=== PATIENT | female | born 1955 | race Caucasian/White ===

== ENCOUNTER 2018-04-02 11:37 | Emergency (ER) | payer OTHER ==
[2018-04-02] MEDS ORDERED: Ondansetron 4 MG/2 ML SDV IVPUSH ONE (12:33)
[2018-04-02] MEDS ORDERED: HYDROmorphone 0.5 MG/0.5 ML SYRINGE IVPUSH ONE (12:34)
--- NOTE | 2018-04-02 12:37 | EDM.PDOC ---
ED HPI GENERAL MEDICAL PROBLEM - General Chief Complaint: Headache Stated Complaint: CRAMPS/CHILLS/BODY PAIN Time Seen by Provider: 04/02/18 12:05 Source of Information: Reports: Patient, Family (Daughter), Provider () History Limitations: Reports: No Limitations - History of Present Illness INITIAL COMMENTS - FREE TEXT/NARRATIVE: The patient states that she developed nausea, vomiting, lower abdominal pain, and a fever up to 102.7 on 03/17/2018. She was seen at the walk-in clinic on 03/19/2018, where, she states, her temperature was found to be 103. She underwent a CT scan of the abdomen and pelvis with IV contrast which demonstrated a normal appendix and diverticulosis without evidence of diverticulitis, however, she states that she was then treated with 7 days of Flagyl TID and Cipro BID, which she completed. She states that her symptoms had completely resolved by 03/24/2018. She states that she developed generalized weakness, chills, headache, and lower abdominal cramps today. She returned to the walk-in clinic where, she states, her blood pressure was found to be low. A CBC found her WBC count to be elevated at 17.0 with 7.1% bandemia. The remainder of her CBC was unremarkable. A CMP found her sodium to be slightly depressed at 134, with normal renal function. The remainder of her CMP was unremarkable. A urinalysis found a small amount of blood, but no suggestion of a UTI. She was initially sent home, but then called and instructed to go to the ED, for reasons unclear. Here in the ED, patient's BP is found to be low at 90/63, however, she is not tachycardic. She is afebrile. She is in no acute distress. She states that she has had small quantities of infrequent watery diarrhea. She denies recent dysuria, urinary frequency, or urgency. The patient does not have a PCP. Frontal Pain Score (Numeric/FACES): 7 - Related Data Allergies Allergy/AdvReac Type Severity Reaction Status Date / Time No Known Allergies Allergy Verified 04/02/18 12:32 Home Meds: Home Meds metroNIDAZOLE [Flagyl] 1 tab PO Q8H #30 tab 04/02/18 [Rx] Past Medical History Gastrointestinal History: Reports: Diverticulosis - Past Surgical History HEENT Surgical History: Reports: Tonsillectomy GI Surgical History: Reports: Other (See Below) (Rectal prolapse) Musculoskeletal Surgical History: Reports: Carpal Tunnel (right), ORIF (right ankle), Other (See Below) (bilateral thumb ligament repair) Social & Family History - Tobacco Use Smoking Status *Q: Current Every Day Smoker Years of Tobacco use: 44 Packs/Tins Daily: 0.5 Packs/Tins Daily Comment: Down from 1 ppd - Alcohol Use Alcohol Use History: Yes Alcohol Use Frequency: Socially - Recreational Drug Use Recreational Drug Use: No - Living Situation & Occupation Living situation: Reports: , Other (with friends) 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 ED EXAM, GI/ABD - Physical Exam Exam: See Below Exam Limited By: No Limitations General Appearance: Alert, WD/WN, No Apparent Distress Eyes: Bilateral: Normal Appearance, EOMI Ears: Normal External Exam, Hearing Grossly Normal Nose: Normal Inspection, No Blood Throat/Mouth: Normal Inspection, Normal Lips, Normal Voice, No Airway Compromise Head: Atraumatic, Normocephalic Neck: Normal Inspection, Full Range of Motion Respiratory/Chest: No Respiratory Distress, Lungs Clear, Normal Breath Sounds, No Accessory Muscle Use Cardiovascular: Normal Peripheral Pulses, Regular Rate, Rhythm, No Edema, No Gallop, No JVD, No Murmur, No Rub GI/Abdominal Exam: Normal Bowel Sounds (active), Soft, No Organomegaly, No Distention, No Abnormal Bruit, No Mass, Tender (Mild, generalized, non-focal) (Female) Exam: Deferred Rectal (Female) Exam: Deferred Back Exam: Normal Inspection, Full Range of Motion. No: CVA Tenderness (L), CVA Tenderness (R) Extremities: Normal Inspection, Normal Range of Motion, No Pedal Edema, Normal Capillary Refill Neurological: Alert, Oriented, Normal Cognition, No Motor/Sensory Deficits Psychiatric: Normal Affect Skin Exam: Warm, Dry, Intact, Normal Color, No Rash Course - Vital Signs Last Recorded V/S: Last Vital Signs Temp 36.7 C 04/02/18 12:32 Pulse 79 04/02/18 12:32 Resp 14 04/02/18 12:32 BP 90/63 04/02/18 12:32 Pulse Ox 100 04/02/18 12:32 - Orders/Labs/Meds Orders: Active Orders 24 hr Category Date Time Status Sodium Chloride 0.9% [Normal Saline] 1,000 ml Med 04/02/18 12:45 Active IV ASDIRECTED Sodium Chloride 0.9% [Saline Flush] Med 04/02/18 13:06 Active 10 ml FLUSH ONETIME PRN Medication Orders Sodium Chloride (Normal Saline) 1,000 mls @ 150 mls/hr IV ASDIRECTED ZAHRA Last Admin: 04/02/18 13:20 Dose: 150 mls/hr Sodium Chloride (Saline Flush) 10 ml FLUSH ONETIME PRN PRN Reason: IV FLUSH Last Admin: 04/02/18 13:48 Dose: 10 ml Admin: 04/02/18 13:21 Dose: 10 ml Labs: Laboratory Tests 04/02/18 Range/Units 13:15 C.difficile [id number] Presumptive negative C. difficile Tox (PCR) Positive H Meds: Medications Generic Name Dose Route Start Last Admin Trade Name Freq PRN Reason Stop Dose Admin Sodium Chloride 1,000 mls @ 150 mls/hr 04/02/18 12:45 04/02/18 13:20 Normal Saline IV 150 mls/hr ASDIRECTED ZAHRA Administration Sodium Chloride 10 ml 04/02/18 13:06 04/02/18 13:48 Saline Flush FLUSH 10 ml ONETIME PRN Administration IV FLUSH Discontinued Medications Generic Name Dose Route Start Last Admin Trade Name Freq PRN Reason Stop Dose Admin Diatrizoate Meglum/Diatrizoate Sod 90 ml 04/02/18 13:06 04/02/18 13:48 Gastrografin 37% PO 04/02/18 13:07 90 ml ONETIME ONE Administration Hydromorphone HCl 0.5 mg 04/02/18 12:34 04/02/18 13:23 Dilaudid IVPUSH 04/02/18 12:35 0.5 mg ONETIME ONE Administration Iopamidol 100 ml 04/02/18 13:06 04/02/18 13:48 Isovue-300 (61%) IVPUSH 04/02/18 13:07 80 ml ONETIME ONE Administration Metronidazole 500 mg 04/02/18 14:36 04/02/18 14:47 Flagyl PO 04/02/18 14:37 500 mg ONETIME ONE Administration Ondansetron HCl 4 mg 04/02/18 12:33 04/02/18 13:21 Zofran IVPUSH 04/02/18 12:34 4 mg ONETIME ONE Administration - Re-Assessments/Exams Free Text/Narrative Re-Assessment/Exam: 04/02/18 12:35 The patient presents with generalized weakness, chills, headache, and lower abdominal cramps, with a history of taking a seven-day course of both Flagyl and ciprofloxacin from 03/19/2018 through 03/25/2018. A CBC performed at the walk- in clinic this morning found her WBC count to be elevated at 17.0 with 7.1% bandemia. Her CMP and urinalysis are unremarkable. She reports infrequent small quantity liquid diarrhea. I have ordered a stool sample for C. difficile, as well as a CT scan of the abdomen and pelvis with oral and IV contrast. 04/02/18 14:35 Notified by microbiology that the patient's stool C. difficile toxin is positive. I have ordered Flagyl 500 mg. 04/02/18 14:36 CT of the abdomen and pelvis with oral and IV contrast is read by Dr. Green as: 1. Incidental findings. Nothing acute is appreciated on CT study of the abdomen and pelvis. 04/02/18 14:46 Test results discussed with the patient and her family. As above, the patient has been started on oral Flagyl, and I will prescribe a ten-day course. I would like the patient to stay adequately hydrated. I would like her to follow-up with Dr. Vinson, especially if her diarrhea does not cease. If it does, she does not need to be retested for C. difficile. Departure - Departure Time of Disposition: 14:48 Disposition: Home, Self-Care 01 Condition: Good Clinical Impression: Clostridium difficile diarrhea - Discharge Information Referrals: PCP,None [Primary Care Provider] - Ashley Vinson MD [Physician] - Forms: ED Department Discharge Additional Instructions: You were sent from the walk-in clinic for generalized weakness, chills, headache , lower abdominal cramps, and watery diarrhea. A CBC performed at the walk-in clinic found her WBC count to be elevated at 17.0 with 7.1% bandemia, consistent with a bacterial infection. Your chemistry panel was essentially normal, and your urinalysis showed a small amount of blood , but no suggestion of a UTI. Workup in the ER included a stool for C. difficile test, and a CT scan of your abdomen and pelvis. The CT scan of your abdomen and pelvis was unremarkable, however, the stool for C. difficile test returned positive. You have been started on the antibiotic Flagyl. A prescription for Flagyl has been sent to the [facility], located on [facility]. Take one tablet every 8 hours, starting at 11:00 tonight, as prescribed. Even if your diarrhea stops, you must finish the entire 10 day course. Stay adequately hydrated. Follow-up with Dr. Ashley Vinson as a primary care physician as needed, or in 10 days (04/12/2018) if your diarrhea has not stopped. If any other problems, please do not hesitate to return to the ER. - My Orders Last 24 Hours: My Active Orders 04/02/18 12:45 Sodium Chloride 0.9% [Normal Saline] 1,000 ml IV ASDIRECTED 04/02/18 13:06 Sodium Chloride 0.9% [Saline Flush] 10 ml FLUSH ONETIME PRN - Assessment/Plan Last 24 Hours: My Active Orders 04/02/18 12:45 Sodium Chloride 0.9% [Normal Saline] 1,000 ml IV ASDIRECTED 04/02/18 13:06 Sodium Chloride 0.9% [Saline Flush] 10 ml FLUSH ONETIME PRN
[2018-04-02 12:40] VITALS: BP 90/63
[2018-04-02] MEDS ORDERED: Sodium Chloride 0.9% 1,000 ML IV SCH (12:45)
[2018-04-02] MEDS ORDERED: Diatrizoate Meglumine/Diatrizoate Sodium 37% 120 ML Bottle PO ONE (13:06)
[2018-04-02] MEDS ORDERED: Iopamidol 612 MG/ML 100 ML Bottle IVPUSH ONE (13:06)
[2018-04-02] MEDS: Sodium Chloride 0.9% 10 ML Syringe FLUSH PRN ×2 (13:21→13:48)
--- NOTE | 2018-04-02 14:34 | CT ---
CT abdomen and pelvis Technique: Multiple axial sections were obtained from above the dome of the diaphragm inferiorly through the pubic symphysis. Intravenous and oral contrast was utilized. Delayed images were obtained through the bladder. Comparison: No prior CT abdomen or pelvis exam is available. Findings: Visualized lung bases show nothing acute. Liver shows no focal parenchymal abnormality. Gallbladder contains no calcified gallstones. Adrenal glands show no nodule. Kidneys show symmetric contrast enhancement without hydronephrosis or mass. Spleen appears within normal limits. Pancreas shows no discrete abnormality. Aorta shows no aneurysmal dilatation. No retroperitoneal adenopathy is seen. No mesenteric abnormalities are seen. Delayed images show contrast within the ureters as well as within the bladder. Appendix is felt to be visualized and is normal in size. No free fluid or inflammatory change is seen within the abdomen or pelvis. Bone window settings were reviewed which show scattered degenerative change within the spine with vacuum phenomena and mild spondylolisthesis at L4-L5. Impression: 1. Incidental findings. Nothing acute is appreciated on CT study of the abdomen and pelvis. Diagnostic code #2
[2018-04-02] MEDS ORDERED: metroNIDAZOLE 500 MG Tab PO ONE (14:36)
== END 2018-04-02 15:48 | disposition home or self-care (01) ==
LOC: JD.ED 11:37
DX: A04.72 Enterocolitis due to Clostridium difficile, not specified as recurrent (principal); F17.210 Nicotine dependence, cigarettes, uncomplicated
CPT/HCPCS: 74177; 87493; 96361; 96374; 96375; 99284; A9270; J1170; J2405; J7040; J7050; Q9963; Q9967

== ENCOUNTER 2019-01-29 00:39 | Emergency (ER) | payer SELFPAY ==
[2019-01-29 01:11] VITALS: BP 146/86
[2019-01-29] MEDS ORDERED: Diphtheria,Pertussis(Acell),Tetanus Vaccine 0.5 ML Syringe IM ONE (01:19)
--- NOTE | 2019-01-29 01:22 | EDM.PDOC ---
ED HPI GENERAL MEDICAL PROBLEM - General Chief Complaint: Laceration Stated Complaint: FINGER LACERATION Time Seen by Provider: 01/29/19 01:14 Source of Information: Reports: Patient History Limitations: Reports: No Limitations - History of Present Illness INITIAL COMMENTS - FREE TEXT/NARRATIVE: This is a 63-year-old female. She was walking outside and apparently tripped and fell she landed with her left hand outstretched and then hit her left shoulder. She has a laceration to her left thumb. She does not know when her last tetanus was. She complains of left shoulder pain and left thumb pain. She denies hitting her head is been no loss of consciousness and she denies any other injuries. Left Arm Pain Score (Numeric/FACES): 6 - Related Data Allergies Allergy/AdvReac Type Severity Reaction Status Date / Time No Known Allergies Allergy Verified 04/02/18 12:32 Home Meds: Home Meds . [No Known Home Meds] 01/29/19 [History] Past Medical History - Past Health History Medical/Surgical History: Denies Medical/Surgical History Gastrointestinal History: Reports: Diverticulosis - Past Surgical History HEENT Surgical History: Reports: Tonsillectomy GI Surgical History: Reports: Other (See Below) Musculoskeletal Surgical History: Reports: Carpal Tunnel, ORIF, Other (See Below ) Social & Family History - Tobacco Use Smoking Status *Q: Current Every Day Smoker Years of Tobacco use: 40 Packs/Tins Daily: 1 - Caffeine Use Caffeine Use: Reports: Coffee - Recreational Drug Use Recreational Drug Use: No - Living Situation & Occupation Living situation: Reports: , Other (with friends) 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[employer]) ED ROS GENERAL - Review of Systems Review Of Systems: See Below Constitutional: Denies: Fever, Chills HEENT: Reports: No Symptoms Respiratory: Reports: No Symptoms Cardiovascular: Reports: No Symptoms Endocrine: Reports: No Symptoms GI/Abdominal: Reports: No Symptoms : Reports: No Symptoms Musculoskeletal: Reports: Shoulder Pain, Hand Pain Skin: Reports: Other (As per history of present illness) Neurological: Reports: No Symptoms Psychiatric: Reports: No Symptoms Hematologic/Lymphatic: Reports: No Symptoms ED EXAM, SKIN/RASH Exam: See Below Exam Limited By: No Limitations General Appearance: Alert, WD/WN, No Apparent Distress Eye Exam: Bilateral Eye: Normal Inspection Ears: Normal External Exam Nose: Normal Inspection Throat/Mouth: Normal Lips, Normal Voice, No Airway Compromise Head: Atraumatic, Normocephalic Neck: Supple Respiratory/Chest: No Respiratory Distress Back Exam: Full Range of Motion Extremities: Other (Left hand she has a 3-4 cm laceration across the DIP joint on the palmar surface of the left thumb, she appears to have good range of motion and neurovascular is intact distally in that thumb, she has some tenderness at the base of the thumb but there is no obvious abnormality and no other digit abnormality, her left shoulder is tender in the supraspinatus and anterior deltoid area though she seems to be able to pick it up and actually reach overhead though it is tender to do so) Neurological: Alert, Oriented Psychiatric: Normal Affect, Normal Mood Skin: Warm, Dry ED SKIN PROCEDURES - Laceration/Wound Repair Left Hand Lac/Wound length In cm: 3 Appearance: Linear, Clean Distal NVT: Neuro & Vascular Intact Anesthetic Type: Local Local Anesthesia - Lidocaine (Xylocaine): 1% Plain Local Anesthetic Volume: 4cc Skin Prep: Providone-Iodine (Betadine) Exploration/Debridement/Repair: Wound Explored Closed with: Sutures Suture Size: other (5-0) # of Sutures: 5 Suture Type: Nylon Drain Placement: No Sterile Dressing Applied: Nurse Tetanus Status Addressed: Yes Complications: No Course - Vital Signs Last Recorded V/S: Last Vital Signs Temp 97.9 F 01/29/19 01:08 Pulse 66 01/29/19 01:08 Resp 16 01/29/19 01:08 BP 146/86 H 01/29/19 01:08 Pulse Ox 99 01/29/19 01:08 - Orders/Labs/Meds Orders: Active Orders 24 hr Category Date Time Status Vaccines to be Administered [RC] PER UNIT ROUTINE Care 01/29/19 01:19 Active Hand Comp Min 3V Lt [CR] Stat Exams 01/29/19 01:19 Taken Shoulder Comp Lt [CR] Stat Exams 01/29/19 01:18 Taken Meds: Medications Discontinued Medications Generic Name Dose Route Start Last Admin Trade Name Freq PRN Reason Stop Dose Admin Diphtheria/Tetanus/Acell Pertussis 0.5 ml 01/29/19 01:19 01/29/19 02:42 Adacel IM 01/29/19 01:20 0.5 ml .ONCE ONE Administration Lidocaine HCl 20 ml 01/29/19 02:25 01/29/19 02:44 Xylocaine 1% INJECT 01/29/19 02:26 Not Given ONETIME ONE Lidocaine HCl Confirm 01/29/19 02:38 01/29/19 02:44 Xylocaine-Mpf 1% Administered 01/29/19 02:39 30 ml Dose Administration 30 ml .ROUTE .STK-MED ONE - Radiology Interpretation Free Text/Narrative:: The shoulder x-rays do not show any acute fractures. Left thumb x-ray shows severe degenerative changes but I do not see any acute fractures - Re-Assessments/Exams Free Text/Narrative Re-Assessment/Exam: 01/29/19 02:25 I spoke to the patient regarding her x-ray results that there is no acute fractures though she does have severe degenerative changes in her left thumb. 01/29/19 03:02 I sutured the left thumb with no difficulty with good approximation of the skin edges and the patient tolerated it well. Departure - Departure Time of Disposition: 03:02 Disposition: Home, Self-Care 01 Condition: Good Clinical Impression: Laceration of left thumb Qualifiers: Encounter type: initial encounter Damage to nail status: without damage Foreign body presence: without foreign body Qualified Code(s): S61.012A - Laceration without foreign body of left thumb without damage to nail, initial encounter Sprain of left thumb Qualifiers: Encounter type: initial encounter Sprain of finger site: unspecified site Qualified Code(s): S63.602A - Unspecified sprain of left thumb, initial encounter Sprain of left shoulder Qualifiers: Encounter type: initial encounter Shoulder sprain type: unspecified sprain Qualified Code(s): S43.402A - Unspecified sprain of left shoulder joint, initial encounter - Discharge Information *PRESCRIPTION DRUG MONITORING PROGRAM REVIEWED*: Not Applicable *COPY OF PRESCRIPTION DRUG MONITORING REPORT IN PATIENT JORGE: Not Applicable Instructions: Laceration Care, Adult, [id number] Referrals: Los Armando MD [Primary Care Provider] - Forms: ED Department Discharge Additional Instructions: Keep the wound clean and dry and do not submerge it in water, watch for infection which would include increased redness swelling or drainage, have the sutures removed in 7-10 days by your family physician, take Tylenol or ibuprofen as needed for the soreness, when you see your family physician and have them recheck your left shoulder to make sure it is getting better, return to the ER if needed - My Orders Last 24 Hours: My Active Orders 01/29/19 01:18 Shoulder Comp Lt [CR] Stat 01/29/19 01:19 Vaccines to be Administered [RC] PER UNIT ROUTINE Hand Comp Min 3V Lt [CR] Stat - Assessment/Plan Last 24 Hours: My Active Orders 01/29/19 01:18 Shoulder Comp Lt [CR] Stat 01/29/19 01:19 Vaccines to be Administered [RC] PER UNIT ROUTINE Hand Comp Min 3V Lt [CR] Stat
[2019-01-29] MEDS ORDERED: Lidocaine 1% 20 ML MDV INJECT ONE (02:25)
[2019-01-29] MEDS ORDERED: Lidocaine 1% 30 ML SDV ONE (02:38)
--- NOTE | 2019-01-29 20:17 | CR ---
Left shoulder: Three views of the left shoulder were obtained. Comparison: No prior shoulder study. Lucencies are seen within the rim of the glenoid either due to prior surgery or slight degenerative cystic change. Acromioclavicular and glenohumeral joint are otherwise unremarkable. No acute fracture, dislocation or other bony abnormality is seen. Impression: 1. Lucencies within the glenoid as described above. 2. Left shoulder study is otherwise unremarkable. Diagnostic code #2
--- NOTE | 2019-01-29 20:17 | CR ---
Left thumb: Three views of left thumb were obtained. Comparison: No previous study. Severe degenerative change noted at the CMC joint of the thumb. There is partial collapse being seen of the trapezium. Joint space narrowing and osteophytes are noted within the MCP and IP joints. Bony structures are slightly osteopenic. No acute abnormality is seen. Impression: 1. Degenerative change as noted above. Chronic partial collapse of the trapezium. 2. Nothing acute is seen. Diagnostic code #2
== END 2019-01-29 03:22 | disposition home or self-care (01) ==
LOC: JD.ED 00:39
DX: S43.402A Unspecified sprain of left shoulder joint, initial encounter (principal); S63.602A Unspecified sprain of left thumb, initial encounter; Z23 Encounter for immunization; F17.210 Nicotine dependence, cigarettes, uncomplicated; W01.10XA Fall on same level from slipping, tripping and stumbling with subsequent striking against unspecified object, initial encounter
CPT/HCPCS: 12002; 73030; 73130; 90471; 90700; 99283; J2001; 99282

== ENCOUNTER 2019-09-25 00:28 | Emergency (ER) | payer MEDICARE, OTHER ==
--- NOTE | 2019-09-25 00:52 | EDM.PDOC ---
ED HPI GENERAL MEDICAL PROBLEM - General Chief Complaint: Respiratory Problem Stated Complaint: SOB CHEST HEAVY Time Seen by Provider: 09/25/19 00:51 - History of Present Illness INITIAL COMMENTS - FREE TEXT/NARRATIVE: 64-year-old female returns the emergency room with chest tightness breaking out in a rash and some possible throat tightness. This started around 10:30 this evening. The patient was out having a few drinks with some friends. She also was exposed to oven millstone cleaner earlier in the day. But this is not cause problems for her in the past. Patient denies any history of coronary artery disease is not aware of any chest pain in the past or heart attack. She has some chest tightness but no shortness of breath she is able to swallow and clear secretions okay. - Related Data Allergies Allergy/AdvReac Type Severity Reaction Status Date / Time No Known Allergies Allergy Verified 09/25/19 00:35 Home Meds: Home Meds Potassium Chloride [Klor-Con M20] 20 meq PO Q12H #8 tab.er 09/25/19 [Rx] predniSONE [Prednisone] 40 mg PO Q24H #4 tablet 09/25/19 [Rx] Past Medical History - Past Health History Medical/Surgical History: Denies Medical/Surgical History Cardiovascular History: Reports: Hypertension Gastrointestinal History: Reports: Diverticulosis [employer] History: Reports: - Past Surgical History HEENT Surgical History: Reports: Tonsillectomy Musculoskeletal Surgical History: Reports: Carpal Tunnel, ORIF Social & Family History - Tobacco Use Smoking Status *Q: Current Every Day Smoker Years of Tobacco use: 20 Packs/Tins Daily: 0.5 - Caffeine Use Caffeine Use: Reports: Coffee - Alcohol Use Days Per Week of Alcohol Use: 4 Number of Drinks Per Day: 3 Total Drinks Per Week: 12 - Recreational Drug Use Recreational Drug Use: No - Living Situation & Occupation Living situation: Reports: , Other (with friends) 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 Denies: No Symptoms Respiratory: Reports: No Symptoms Cardiovascular: Reports: No Symptoms Endocrine: Reports: No Symptoms GI/Abdominal: Reports: No Symptoms : Reports: No Symptoms Musculoskeletal: Reports: No Symptoms Skin: Reports: Other (Red splotchy rash over the face and start to develop on the trunk) Neurological: Reports: No Symptoms Psychiatric: Reports: No Symptoms Hematologic/Lymphatic: Reports: No Symptoms Immunologic: Reports: No Symptoms ED EXAM, GENERAL - Physical Exam Exam: See Below Exam Limited By: No Limitations General Appearance: Alert, No Apparent Distress, Other (She has a splotchy rash developing over her face and to a lesser degree her neck even a lesser degree over her lower trunk at this time a little bit on her proximal extremities) Eye Exam: Bilateral Eye: Normal Inspection, PERRL Ears: Normal External Exam, Normal Canal, Hearing Grossly Normal, Normal TMs Nose: Normal Inspection, Normal Mucosa, No Blood Throat/Mouth: Normal Inspection, Normal Lips, Normal Teeth, Normal Gums, Normal Oropharynx, Normal Voice, No Airway Compromise Head: Atraumatic, Normocephalic Neck: Normal Inspection, Supple, Non-Tender, Full Range of Motion. No: Lymphadenopathy (L), Lymphadenopathy (R) Respiratory/Chest: Lungs Clear, Normal Breath Sounds, No Accessory Muscle Use Cardiovascular: Regular Rate, Rhythm, No Edema, No Murmur GI/Abdominal: Normal Bowel Sounds, Soft, Non-Tender Back Exam: Normal Inspection. No: CVA Tenderness (L), CVA Tenderness (R) Extremities: Normal Inspection, No Pedal Edema Skin Exam: Other (He has a variable rash almost hives like over her face pretty confluent over the face to a lesser degree over her lower trunk abdomen and low back and even to a lesser degree on her proximal thighs and upper arms) Course - Vital Signs Last Recorded V/S: Last Vital Signs Temp 36.6 C 09/25/19 00:35 Pulse 87 09/25/19 00:35 Resp 27 H 09/25/19 00:35 BP 138/75 09/25/19 00:35 Pulse Ox 95 09/25/19 00:35 - Orders/Labs/Meds Orders: Active Orders 24 hr Category Date Time Status EKG Documentation Completion [RC] STAT Care 09/25/19 01:05 Active Chest 1V Frontal [CR] Stat Exams 09/25/19 01:05 Taken Lactated Ringers [Ringers, Lactated] 1,000 ml Med 09/25/19 02:00 Active IV ASDIRECTED Medication Orders Lactated Ringer's (Ringers, Lactated) 1,000 mls @ 150 mls/hr IV ASDIRECTED ZAHRA Last Admin: 09/25/19 02:04 Dose: 150 mls/hr Labs: Laboratory Tests 09/25/19 09/25/19 09/25/19 Range/Units 00:35 00:35 00:35 WBC 8.89 (3.98-10.04) K/mm3 RBC 4.25 (3.98-5.22) M/mm3 Hgb 13.4 (11.2-15.7) gm/dl Hct 38.8 (34.1-44.9) % MCV 91.3 (79.4-94.8) fl MCH 31.5 (25.6-32.2) pg MCHC 34.5 (32.2-35.5) g/dl RDW Std Deviation 41.7 (36.4-46.3) fL Plt Count 320 (182-369) K/mm3 MPV 9.4 (9.4-12.3) fl Neutrophils % (Manual) 28 L (40-60) % Band Neutrophils % 2 (0-10) % Lymphocytes % (Manual) 49 H (20-40) % Atypical Lymphs % 5 % Monocytes % (Manual) 13 H (2-10) % Eosinophils % (Manual) 0 L (0.7-5.8) % Basophils % (Manual) 3 H (0.1-1.2) Platelet Estimate Adequate Plt Morphology Comment Normal RBC Morph Comment Normal PT 10.0 (9.7-12.0) SECONDS INR < 0.93 APTT 27 (22-31) SECONDS Sodium 131 L (136-145) mEq/L Potassium 2.8 L (3.5-5.1) mEq/L Chloride 96 L (98-107) mEq/L Carbon Dioxide 21 (21-32) mEq/L Anion Gap 16.8 H (5-15) BUN 8 (7-18) mg/dL Creatinine 0.7 (0.55-1.02) mg/dL Est Cr Clr Drug Dosing 56.78 mL/min Estimated GFR (MDRD) > 60 (>60) mL/min BUN/Creatinine Ratio 11.4 L (14-18) Glucose 117 H (80-115) mg/dL Calcium 8.9 (8.5-10.1) mg/dL Total Bilirubin 0.2 (0.2-1.0) mg/dL AST 17 (15-37) U/L ALT 24 (14-59) U/L Alkaline Phosphatase 68 (46-116) U/L Troponin I < 0.017 (0.00-0.056) ng/mL Total Protein 7.0 (6.4-8.2) g/dl Albumin 3.7 (3.4-5.0) g/dl Globulin 3.3 gm/dL Albumin/Globulin Ratio 1.1 (1-2) Ethyl Alcohol (0.00) gm% 09/25/19 Range/Units 00:35 WBC (3.98-10.04) K/mm3 RBC (3.98-5.22) M/mm3 Hgb (11.2-15.7) gm/dl Hct (34.1-44.9) % MCV (79.4-94.8) fl MCH (25.6-32.2) pg MCHC (32.2-35.5) g/dl RDW Std Deviation (36.4-46.3) fL Plt Count (182-369) K/mm3 MPV (9.4-12.3) fl Neutrophils % (Manual) (40-60) % Band Neutrophils % (0-10) % Lymphocytes % (Manual) (20-40) % Atypical Lymphs % % Monocytes % (Manual) (2-10) % Eosinophils % (Manual) (0.7-5.8) % Basophils % (Manual) (0.1-1.2) Platelet Estimate Plt Morphology Comment RBC Morph Comment PT (9.7-12.0) SECONDS INR APTT (22-31) SECONDS Sodium (136-145) mEq/L Potassium (3.5-5.1) mEq/L Chloride (98-107) mEq/L Carbon Dioxide (21-32) mEq/L Anion Gap (5-15) BUN (7-18) mg/dL Creatinine (0.55-1.02) mg/dL Est Cr Clr Drug Dosing mL/min Estimated GFR (MDRD) (>60) mL/min BUN/Creatinine Ratio (14-18) Glucose (80-115) mg/dL Calcium (8.5-10.1) mg/dL Total Bilirubin (0.2-1.0) mg/dL AST (15-37) U/L ALT (14-59) U/L Alkaline Phosphatase (46-116) U/L Troponin I (0.00-0.056) ng/mL Total Protein (6.4-8.2) g/dl Albumin (3.4-5.0) g/dl Globulin gm/dL Albumin/Globulin Ratio (1-2) Ethyl Alcohol 0.19 (0.00) gm% Meds: Medications Generic Name Dose Route Start Last Admin Trade Name Freq PRN Reason Stop Dose Admin Lactated Ringer's 1,000 mls @ 150 mls/hr 09/25/19 02:00 09/25/19 02:04 Ringers, Lactated IV 150 mls/hr ASDIRECTED ZAHRA Administration Discontinued Medications Generic Name Dose Route Start Last Admin Trade Name Freq PRN Reason Stop Dose Admin Acetaminophen 650 mg 09/25/19 01:49 09/25/19 02:05 Tylenol PO 09/25/19 01:50 650 mg NOW ONE Administration Diphenhydramine HCl 50 mg 09/25/19 01:04 09/25/19 01:20 Benadryl IVPUSH 09/25/19 01:05 50 mg ONETIME ONE Administration Famotidine 40 mg 09/25/19 01:04 09/25/19 01:24 Pepcid IVPUSH 09/25/19 01:05 40 mg ONETIME ONE Administration Potassium Chloride 10 meq/ 100 mls @ 100 mls/hr 09/25/19 02:00 09/25/19 03:12 Premix IV 09/25/19 03:59 100 mls/hr Q1H ZAHRA Administration Methylprednisolone Sodium Succinate 125 mg 09/25/19 01:04 09/25/19 01:27 Solu-Medrol IVPUSH 09/25/19 01:05 125 mg ONETIME ONE Administration - Re-Assessments/Exams Free Text/Narrative Re-Assessment/Exam: 09/25/19 04:59 Labs obtained which are concerning for hypokalemia at 2.8 sodium is down a little bit 131 chloride 96. CBC shows a white count of 8928% segs 2% bands 49% lymphs 13% monocytes 0 eosinophils and 3% basophils. Troponins negative chest x- ray was done which shows no acute cardiopulmonary changes old rib fractures on the right side are visualized these were present in 2016. Patient states she injured her chest many years ago. Departure - Departure Time of Disposition: 05:01 Disposition: Refer to Observation Clinical Impression: Allergic reaction, Hypokalemia - Discharge Information Prescriptions: Potassium Chloride [Klor-Con M20] 20 meq PO Q12H #8 tab.er predniSONE [Prednisone] 40 mg PO Q24H #4 tablet Referrals: PCP,None [Primary Care Provider] - Forms: ED Department Discharge Additional Instructions: Return to the emergency room with any questions problems or worsening symptoms. Call the Hospital clinic and arrange follow-up for the middle to end of this next week. [phone]. Take the prednisone 40 mg, or 2 of the 20 mg tablets every morning starting Thursday morning until gone. Use Benadryl 25 mg 4 times a day for the next 24 hours and then as needed. Take famotidine, this is the generic for Pepcid, 20 mg twice daily for 1 week and then as needed. Sepsis Event Note - Evaluation Sepsis Screening Result: No Definite Risk - Focused Exam Vital Signs: Vital Signs Temp Pulse Resp BP Pulse Ox 09/25/19 00:35 36.6 C 87 27 H 138/75 95 Date Exam was Performed: 09/25/19 Time Exam was Performed: 04:52 - My Orders Last 24 Hours: My Active Orders 09/25/19 01:05 EKG Documentation Completion [RC] STAT Chest 1V Frontal [CR] Stat 09/25/19 02:00 Lactated Ringers [Ringers, Lactated] 1,000 ml IV ASDIRECTED - Assessment/Plan Last 24 Hours: My Active Orders 09/25/19 01:05 EKG Documentation Completion [RC] STAT Chest 1V Frontal [CR] Stat 09/25/19 02:00 Lactated Ringers [Ringers, Lactated] 1,000 ml IV ASDIRECTED
[2019-09-25] MEDS ORDERED: methylPREDNISolone Sodium Succinate 125 MG/2 ML SDV IVPUSH ONE (01:04)
[2019-09-25] MEDS ORDERED: diphenhydrAMINE 50 MG/ML SDV IVPUSH ONE (01:04)
[2019-09-25] MEDS ORDERED: Famotidine 20 MG/2 ML SDV IVPUSH ONE (01:04)
[2019-09-25 01:08] VITALS: BP 138/75; PULSE 87
[2019-09-25] MEDS ORDERED: Acetaminophen 325 MG Tab PO ONE (01:49)
[2019-09-25] MEDS ORDERED: Lactated Ringers 1,000 ML IV SCH (02:00)
[2019-09-25] MEDS: Potassium Chloride 10 MEQ in Premix Bag 1 BAG IV SCH ×2 (02:04→03:12)
--- NOTE | 2019-09-26 10:43 | CR ---
Chest: Portable view of the chest was obtained. Comparison: Prior chest x-ray of 11/06/15. Heart size and mediastinum are within normal limits. Lungs are somewhat hyperinflated compatible with emphysematous change. Two or three old healed right-sided rib fractures are noted. Lungs show no acute parenchymal change. Impression: 1. Emphysematous change. Other findings as noted above. 2. Nothing acute is appreciated on portable chest x-ray. Diagnostic code #2 This report was dictated in [place] Standard Time
== END 2019-09-25 05:17 | disposition other institution (70) ==
LOC: JD.ED 00:28
DX: T78.40XA Allergy, unspecified, initial encounter (principal); E87.6 Hypokalemia; I10 Essential (primary) hypertension; F17.210 Nicotine dependence, cigarettes, uncomplicated
CPT/HCPCS: 36415; 71045; 80053; 84484; 85007; 85027; 85610; 85730; 93005; 96361; 96374; 96375; 99285; A9270; G0480; J1200; J2930; J3480; J3490; J7120; 99284

== ENCOUNTER 2020-08-20 11:07 | Emergency (ER) | payer MEDICARE, OTHER ==
[2020-08-20 11:29] VITALS: BP 185/105; PULSE 60
[2020-08-20] MEDS ORDERED: Ketorolac 30 MG/ML SDV IM ONE (11:46)
--- NOTE | 2020-08-20 11:52 | EDM.PDOC ---
ED HPI GENERAL MEDICAL PROBLEM - General Chief Complaint: ENT Problem Stated Complaint: BLOOD WORK/EKG CONCERNS Time Seen by Provider: 08/20/20 11:33 Source of Information: Reports: Patient, RN Notes Reviewed History Limitations: Reports: No Limitations - History of Present Illness INITIAL COMMENTS - FREE TEXT/NARRATIVE: Patient is a 65-year-old female who presents to the ED via the direction from Dr. Ocampo at the walk-in clinic for her ongoing left-sided jaw pain. The patient notes that this is been present for about 2 weeks, she has some pressure and sharp pains in her left jaw, sometimes when she opens her mouth she feels a click. She does state that she has a history of TMJ. She states now that she had some pain into her ear, and she felt a little bit dizzy this morning, when she did some housework at around 4 5 AM. She states that when she bent over, she felt dizzy, so she laid back down onto the bed. She got up again, went to walk down the hallway and felt faint so she laid down. She states she did this for a little while and this generally went away. She took some ibuprofen as well for her jaw pain, and states that this does seem to help when she takes it. She went to the walk-in clinic for evaluation, and Dr. Ocampo did an EKG, and became concerned for the possibility of a stroke and sent her to the ER due to an elevated blood pressure reading and her EKG. The patient notes that she has not had any fevers or chills, cough or shortness of breath, or any sort of chest pain. Left Ear Pain Score (Numeric/FACES): 8 - Related Data Allergies Allergy/AdvReac Type Severity Reaction Status Date / Time No Known Allergies Allergy Verified 08/20/20 11:29 Home Meds: Home Meds Aspirin [Aspirin EC] 08/20/20 [History] Potassium Chloride 08/20/20 [History] hydroCHLOROthiazide [Hydrochlorothiazide] 08/20/20 [History] predniSONE 20 mg PO ASDIRECTED #15 tab 08/20/20 [Rx] Past Medical History Cardiovascular History: Reports: Hypertension Gastrointestinal History: Reports: Diverticulosis [employer] History: Reports: - Past Surgical History HEENT Surgical History: Reports: Tonsillectomy Musculoskeletal Surgical History: Reports: Carpal Tunnel, ORIF Social & Family History - Tobacco Use Tobacco Use Status *Q: Current Every Day Tobacco User Years of Tobacco use: 30 Packs/Tins Daily: 0.5 - Caffeine Use Caffeine Use: Reports: Coffee - Living Situation & Occupation Living situation: Reports: , Other (with friends) 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 ED EXAM, ENT - Physical Exam Exam: See Below Exam Limited By: No Limitations General Appearance: Alert, WD/WN, No Apparent Distress Eye Exam: Left Eye: Nystagmus (few tics of leftward nystagmus appreciated, pt states that this makes her dizziness worse when she turns her head to left.), Bilateral Eye: EOMI, Normal Inspection, PERRL Ears: Normal External Exam, Normal Canal, Hearing Grossly Normal, Normal TMs Mouth/Throat: Normal Inspection, Normal Gums, Normal Lips, Normal Oropharynx, Normal Teeth Head: Atraumatic, Normocephalic, Facial Tenderness (pt has some left sided jaw tenderness around the TMJ) Respiratory/Chest: No Respiratory Distress, Lungs Clear, Normal Breath Sounds, No Accessory Muscle Use, Chest Non-Tender Cardiovascular: Normal Peripheral Pulses, Regular Rate, Rhythm, No Murmur Extremities: Normal Inspection, Normal Capillary Refill Neurological: Alert, Oriented, Normal Cognition, No Motor/Sensory Deficits Psychiatric: Normal Affect, Normal Mood Skin: Warm, Dry, Intact, Normal Color, No Rash #1 Interpretation EKG Date: 08/20/20 Time: 10:39 (done [address] [facility]) Rhythm: NSR Rate (Beats/Min): 60 [place]: Normal P-Wave: Present QRS: Normal ST-T: Normal (borderline T wave abnormalities in the inferior leads) QT: Prolonged (QTc at 560) Comparison: NA - No Prior EKG EKG Interpretation Comments: No obvious ischemia or acute ST changes noted, reviewed by myself and Dr. Menon. Course - Vital Signs Last Recorded V/S: Last Vital Signs Temp 97.2 F 08/20/20 11:24 Pulse 60 08/20/20 11:24 Resp 16 08/20/20 11:24 BP 185/105 H 08/20/20 11:24 Pulse Ox 100 08/20/20 11:24 - Orders/Labs/Meds Labs: Laboratory Tests 08/20/20 08/20/20 Range/Units 12:10 12:10 WBC 7.18 (3.98-10.04) K/mm3 RBC 4.38 (3.98-5.22) M/mm3 Hgb 13.5 (11.2-15.7) gm/dl Hct 40.3 (34.1-44.9) % MCV 92.0 (79.4-94.8) fl MCH 30.8 (25.6-32.2) pg MCHC 33.5 (32.2-35.5) g/dl RDW Std Deviation 40.7 (36.4-46.3) fL Plt Count 316 (182-369) K/mm3 MPV 9.0 L (9.4-12.3) fl Neut % (Auto) 62.8 (34.0-71.1) % Lymph % (Auto) 30.1 (19.3-51.7) % [place] % (Auto) 5.4 (4.7-12.5) % Eos % (Auto) 1.1 (0.7-5.8) Baso % (Auto) 0.6 (0.1-1.2) % Neut # (Auto) 4.51 (1.56-6.13) K/mm3 Lymph # (Auto) 2.16 (1.18-3.74) K/mm3 [place] # (Auto) 0.39 H (0.24-0.36) K/mm3 Eos # (Auto) 0.08 (0.04-0.36) K/mm3 Baso # (Auto) 0.04 (0.01-0.08) K/mm3 Sodium 137 (136-145) mEq/L Potassium 3.9 (3.5-5.1) mEq/L Chloride 101 (98-107) mEq/L Carbon Dioxide 28 (21-32) mEq/L Anion Gap 11.9 (5-15) BUN 9 (7-18) mg/dL Creatinine 0.8 (0.55-1.02) mg/dL Est Cr Clr Drug Dosing 2.75 mL/min Estimated GFR (MDRD) > 60 (>60) mL/min BUN/Creatinine Ratio 11.3 L (14-18) Glucose 180 H (80-115) mg/dL Calcium 9.4 (8.5-10.1) mg/dL Magnesium 1.7 L (1.8-2.4) mg/dl Total Bilirubin 0.5 (0.2-1.0) mg/dL AST 18 (15-37) U/L ALT 27 (14-59) U/L Alkaline Phosphatase 64 (46-116) U/L Troponin I < 0.017 (0.00-0.056) ng/mL Total Protein 7.0 (6.4-8.2) g/dl Albumin 3.6 (3.4-5.0) g/dl Globulin 3.4 gm/dL Albumin/Globulin Ratio 1.1 (1-2) Meds: Medications Discontinued Medications Generic Name Dose Route Start Last Admin Trade Name [place] PRN Reason Stop Dose Admin Ketorolac Tromethamine 30 mg 08/20/20 11:46 08/20/20 11:58 Toradol IM 08/20/20 11:47 30 mg ONETIME ONE Administration Meclizine HCl 25 mg 08/20/20 11:46 08/20/20 12:00 Antivert PO 08/20/20 11:47 25 mg ONETIME ONE Administration - Re-Assessments/Exams Free Text/Narrative Re-Assessment/Exam: 08/20/20 11:52 Patient presents to the ED for evaluation of her ongoing ear pain, headache, and elevated blood pressure. Her EKG was reviewed by myself and Dr. Menon, there is no acute ischemic change appreciated by him or myself. Patient has no focal neurological symptoms to suggest stroke at all. Nonetheless we will do basic labs to rule out possible abnormalities, patient be given a dose of meclizine and Toradol for her jaw pain/headache. Departure - Departure Time of Disposition: 12:59 Disposition: Home, Self-Care 01 Condition: Good Clinical Impression: TMJ (temporomandibular joint disorder) BPPV (benign paroxysmal positional vertigo) Qualifiers: Laterality: unspecified laterality Qualified Code(s): H81.10 - Benign paroxysmal vertigo, unspecified ear - Discharge Information *PRESCRIPTION DRUG MONITORING PROGRAM REVIEWED*: No *COPY OF PRESCRIPTION DRUG MONITORING REPORT IN PATIENT JORGE: No Instructions: Vertigo, [id number], Temporomandibular Joint Syndrome Referrals: Los Armando MD [Primary Care Provider] - Forms: ED Department Discharge Additional Instructions: You were evaluated in the ER today for your ongoing dizziness and left-sided jaw/ear pain. Your dizziness is most likely due to vertigo, the meclizine did help you with this dizziness, you may take 25 mg daily for vertigo-like symptoms. I was able to refer you to physical therapy, for ongoing management. They did schedule you an appointment for 915 tomorrow morning, they told me to have you go to the East entrance of the hospital, and register for physical therapy about 15 minutes early around 9:00 tomorrow morning. If you cannot make this appointment, please call [phone]. Your left sided jaw/ear pain is most likely due to TMJ. You were given a prescription for steroids, please take as directed until the course is complete for further management of this. If your pain does not seem to get much better after you have had appropriate management with physical therapy and steroid therapy, you should talk with your primary care provider about the possibility of an ENT referral. Please return to the ER at any time if symptoms change or worsen. Sepsis Event Note (ED) - Evaluation Sepsis Screening Result: No Definite Risk - Focused Exam Vital Signs: Vital Signs Temp Pulse Resp BP Pulse Ox 08/20/20 11:24 97.2 F 60 16 185/105 H 100
== END 2020-08-20 13:40 | disposition home or self-care (01) ==
LOC: JD.ED 11:07
DX: M26.602 Left temporomandibular joint disorder, unspecified (principal); H81.10 Benign paroxysmal vertigo, unspecified ear; I10 Essential (primary) hypertension; F17.210 Nicotine dependence, cigarettes, uncomplicated
CPT/HCPCS: 36415; 80053; 83735; 84484; 85025; 96372; 99284; A9270; J1885; 93010

== ENCOUNTER 2022-05-03 22:33 | Emergency (ER) | payer MEDICARE, OTHER ==
[2022-05-03] MEDS ORDERED: Sodium Chloride 0.9% 10 ML Syringe FLUSH PRN (22:50)
[2022-05-03] MEDS ORDERED: Diltiazem 50 MG/10 ML SDV IVPUSH ONE (22:52)
[2022-05-03] MEDS ORDERED: Sodium Chloride 0.9% 1,000 ML IV SCH (23:00)
[2022-05-03] MEDS ORDERED: Diltiazem 100 MG in Sodium Chloride 0.9% 100 ML IV SCH (23:00)
[2022-05-04] MEDS ORDERED: Propofol 200 MG/20 ML SDV IVPUSH ONE (02:04)
[2022-05-04] MEDS ORDERED: Lactated Ringers 1,000 ML IV SCH (02:15)
[2022-05-04] MEDS ORDERED: Diltiazem IR 30 MG Tab PO ONE (02:34)
[2022-05-04] MEDS ORDERED: Apixaban 5 MG Tab PO ONE (02:34)
[2022-05-04 02:46] VITALS: BP 98/74; PULSE 105
== END 2022-05-04 03:48 | disposition home or self-care (01) ==
LOC: JD.ED 22:33
DX: I48.91 Unspecified atrial fibrillation (principal); E87.6 Hypokalemia; I10 Essential (primary) hypertension; Z79.01 Long term (current) use of anticoagulants; Z79.899 Other long term (current) drug therapy
CPT/HCPCS: 36415; 71045; 80053; 83735; 84439; 84443; 84484; 85025; 92960; 93005; 96365; 96366; 99285; A9270; J2704; J3490; J7030; J7120; 99284

== ENCOUNTER 2024-05-04 21:39 | Emergency (ER) | payer MEDICARE, OTHER ==
[2024-05-04] MEDS ORDERED: Sodium Chloride 0.9% 10 ML Syringe FLUSH PRN (22:08)
[2024-05-04 22:21] LABS: BASOPHILS PERCENT AUTO 0.6 % (0.0-1.0); EOSINOPHILS ABSOLUTE AUTO 0.2 K/mm3 (0.0-0.4); EOSINOPHILS PERCENT AUTO 2.5 % (0.0-6.0); HEMOGLOBIN 14.2 gm/dl (12.0-16.0); IMMATURE GRAN ABSOLUTE AUTO 0.05 K/mm3 (0.00-0.05); IMMATURE GRAN PERCENT AUTO 0.7 % (0.0-0.4); LYMPHOCYTES ABSOLUTE AUTO 2.5 K/mm3 (1.0-4.8); LYMPHOCYTES PERCENT AUTO 36.8 % (24.0-44.0); MEAN CORPUSCULAR HEMOGLOBIN 31.9 pg (28.0-32.0); MEAN CORPUSCULAR HGB CONC 33.8 g/dl (32.0-36.0); MEAN CORPUSCULAR VOLUME 94.4 fl (83.0-99.0); MEAN PLATELET VOLUME 9.2 fl (9.4-12.3); MONOCYTES ABSOLUTE AUTO 0.6 K/mm3 (0.0-0.8); MONOCYTES PERCENT AUTO 8.6 % (0.0-8.0); NEUTROPHILS ABSOLUTE AUTO 3.4 K/mm3 (1.8-7.7); NEUTROPHILS PERCENT AUTO 50.8 % (41.0-71.0); PLATELET COUNT,PLT 286 K/mm3 (150-400); RED BLOOD CELL COUNT 4.45 M/mm3 (4.10-5.30); WHITE BLOOD CELL COUNT,WBC 6.74 K/mm3 (3.9-11.3)
[2024-05-04 22:33] LABS: A/G RATIO 1.2 (1-2); ALBUMIN 4.2 g/dl (3.4-5.0); ANION GAP 15.1 (5-15); BILIRUBIN TOTAL 0.5 mg/dL (0.2-1.0); BUN/CREATININE RATIO 6.3 (14-18); CALCIUM 9.3 mg/dL (8.5-10.1); CREATININE 0.8 mg/dL (0.55-1.02); POTASSIUM,K 3.1 mEq/L (3.5-5.1); PROTEIN TOTAL,TP 7.7 g/dl (6.4-8.2)
[2024-05-05 05:15] VITALS: BP 154/62; PULSE 66
== END 2024-05-05 04:59 | disposition home or self-care (01) ==
LOC: JD.ED 21:39
DX: S22.089A Unspecified fracture of T11-T12 vertebra, initial encounter for closed fracture (principal); I48.91 Unspecified atrial fibrillation; M48.02 Spinal stenosis, cervical region; Z79.899 Other long term (current) drug therapy; Z79.01 Long term (current) use of anticoagulants; W19.XXXA Unspecified fall, initial encounter
CPT/HCPCS: 36415; 70450; 70450-26; 71250; 71250-26; 72125; 72125-26; 74176; 74176-26; 80053; 85025; 99284

== ENCOUNTER 2024-07-20 23:59 | Emergency (ER) | payer MEDICARE, OTHER ==
[2024-07-21 00:27] VITALS: PULSE 72
== END 2024-07-21 01:38 | disposition home or self-care (01) ==
LOC: JD.ED 23:59
DX: M54.50 Low back pain, unspecified (principal); R42 Dizziness and giddiness; I48.91 Unspecified atrial fibrillation; Z79.01 Long term (current) use of anticoagulants; Z79.899 Other long term (current) drug therapy
CPT/HCPCS: 72100; 72100-26; 73502-26-LT; 73502-LT; 99284

== ENCOUNTER 2024-10-01 08:22 | Emergency (ER) | payer MEDICARE, OTHER ==
[2024-10-01] MEDS: Sodium Chloride 0.9% 1,000 ML IV ONE (09:36)
[2024-10-01] MEDS: Ondansetron 8 MG in Sodium Chloride 0.9% 50 ML IV ONE (09:37)
[2024-10-01 09:41] LABS: BASOPHILS ABSOLUTE AUTO 0.1 K/mm3 (0.0-0.2); BASOPHILS PERCENT AUTO 0.6 % (0.0-1.0); EOSINOPHILS ABSOLUTE AUTO 0.2 K/mm3 (0.0-0.4); EOSINOPHILS PERCENT AUTO 1.9 % (0.0-6.0); HEMATOCRIT 42.3 % (37.0-47.0); HEMOGLOBIN 14.3 gm/dl (12.0-16.0); IMMATURE GRAN ABSOLUTE AUTO 0.19 K/mm3 (0.00-0.05); IMMATURE GRAN PERCENT AUTO 1.7 % (0.0-0.4); LYMPHOCYTES ABSOLUTE AUTO 2.8 K/mm3 (1.0-4.8); LYMPHOCYTES PERCENT AUTO 26.1 % (24.0-44.0); MEAN CORPUSCULAR HEMOGLOBIN 31.4 pg (28.0-32.0); MEAN CORPUSCULAR HGB CONC 33.8 g/dl (32.0-36.0); MEAN PLATELET VOLUME 9.3 fl (9.4-12.3); MONOCYTES ABSOLUTE AUTO 0.9 K/mm3 (0.0-0.8); MONOCYTES PERCENT AUTO 7.8 % (0.0-8.0); NEUTROPHILS ABSOLUTE AUTO 6.7 K/mm3 (1.8-7.7); NEUTROPHILS PERCENT AUTO 61.9 % (41.0-71.0); PLATELET COUNT,PLT 346 K/mm3 (150-400); RED BLOOD CELL COUNT 4.55 M/mm3 (4.10-5.30); WHITE BLOOD CELL COUNT,WBC 10.87 K/mm3 (3.9-11.3)
[2024-10-01 09:44] LABS: APPEARANCE,URINE CLEAR (Clear); BILIRUBIN,URINE NEGATIVE (Negative); COLOR,URINE YELLOW (Yellow); GLUCOSE,URINE NEGATIVE (Negative); KETONES,URINE NEGATIVE (Negative); LEUKOCYTE ESTERASE,URINE NEGATIVE (Negative); NITRITE,URINE NEGATIVE (Negative); OCCULT BLOOD,URINE NEGATIVE (Negative); PH,URINE 6.5 (5.0-8.0); PROTEIN,URINE NEGATIVE (Negative); UROBILINOGEN,URINE 0.2 (0.2-1.0)
[2024-10-01 09:53] LABS: ALBUMIN 3.6 g/dl (3.4-5.0); ANION GAP 12.6 (5-15); BILIRUBIN TOTAL 0.8 mg/dL (0.2-1.0); BUN/CREATININE RATIO 8.8 (14-18); CALCIUM 8.7 mg/dL (8.5-10.1); CREATININE 0.8 mg/dL (0.55-1.02); EST CRCL DRUG DOSING (CG) 46.33 mL/min; MAGNESIUM 1.8 mg/dL (1.8-2.4); POTASSIUM,K 3.6 mEq/L (3.5-5.1); PROTEIN TOTAL,TP 7.2 g/dl (6.4-8.2)
[2024-10-01 15:09] VITALS: BP 132/85; PULSE 68
== END 2024-10-01 13:30 | disposition home or self-care (01) ==
LOC: JD.ED 08:22
DX: K57.32 Diverticulitis of large intestine without perforation or abscess without bleeding (principal); K52.9 Noninfective gastroenteritis and colitis, unspecified; E86.9 Volume depletion, unspecified
CPT/HCPCS: 36415; 74176; 80053; 81003; 82550; 83605; 83690; 83735; 85025; 96365; 99284; J2405; J3490; J7030

== ENCOUNTER 2024-10-25 09:34 | Emergency (ER) | payer MEDICARE, OTHER ==
[2024-10-25 12:31] LABS: BASOPHILS ABSOLUTE AUTO 0.1 K/mm3 (0.0-0.2); BASOPHILS PERCENT AUTO 0.4 % (0.0-1.0); EOSINOPHILS ABSOLUTE AUTO 0.1 K/mm3 (0.0-0.4); EOSINOPHILS PERCENT AUTO 0.7 % (0.0-6.0); HEMATOCRIT 38.3 % (37.0-47.0); HEMOGLOBIN 13.1 gm/dl (12.0-16.0); IMMATURE GRAN ABSOLUTE AUTO 0.04 K/mm3 (0.00-0.05); IMMATURE GRAN PERCENT AUTO 0.4 % (0.0-0.4); LYMPHOCYTES ABSOLUTE AUTO 1.8 K/mm3 (1.0-4.8); LYMPHOCYTES PERCENT AUTO 15.9 % (24.0-44.0); MEAN CORPUSCULAR HEMOGLOBIN 31.1 pg (28.0-32.0); MEAN CORPUSCULAR HGB CONC 34.2 g/dl (32.0-36.0); MEAN PLATELET VOLUME 9.5 fl (9.4-12.3); MONOCYTES ABSOLUTE AUTO 0.9 K/mm3 (0.0-0.8); NEUTROPHILS ABSOLUTE AUTO 8.4 K/mm3 (1.8-7.7); NEUTROPHILS PERCENT AUTO 74.6 % (41.0-71.0); PLATELET COUNT,PLT 342 K/mm3 (150-400); RED BLOOD CELL COUNT 4.21 M/mm3 (4.10-5.30); WHITE BLOOD CELL COUNT,WBC 11.19 K/mm3 (3.9-11.3)
[2024-10-25] MEDS: Acetaminophen 325 MG Tab PO ONE (12:34)
[2024-10-25] MEDS: Sodium Chloride 0.9% 1,000 ML IV ONE (12:35)
[2024-10-25 12:48] LABS: APPEARANCE,URINE CLEAR (Clear); BILIRUBIN,URINE NEGATIVE (Negative); COLOR,URINE YELLOW (Yellow); GLUCOSE,URINE NEGATIVE (Negative); KETONES,URINE NEGATIVE (Negative); LEUKOCYTE ESTERASE,URINE NEGATIVE (Negative); NITRITE,URINE NEGATIVE (Negative); OCCULT BLOOD,URINE NEGATIVE (Negative); PROTEIN,URINE NEGATIVE (Negative); UROBILINOGEN,URINE 0.2 (0.2-1.0)
[2024-10-25 12:55] LABS: A/G RATIO 1.1 (1-2); ALBUMIN 3.3 g/dl (3.4-5.0); BILIRUBIN TOTAL 0.6 mg/dL (0.2-1.0); BUN/CREATININE RATIO 11.3 (14-18); C-REACTIVE PROTEIN 0.06 mg/dL (<0.30); CALCIUM 9.4 mg/dL (8.5-10.1); CREATININE 0.8 mg/dL (0.55-1.02); EST CRCL DRUG DOSING (CG) 46.33 mL/min; PROTEIN TOTAL,TP 6.4 g/dl (6.4-8.2)
[2024-10-25] MEDS: Sodium Chloride 0.9% 10 ML Syringe FLUSH PRN (13:40)
[2024-10-25] MEDS: Iopamidol 612 MG/ML 100 ML Bottle IVPUSH ONE (13:40)
[2024-10-25] MEDS: Amoxicillin/Clavulanate K 875-125 MG Tab PO ONE (17:05)
[2024-10-25 17:15] VITALS: BP 136/86; PULSE 68
== END 2024-10-25 16:20 | disposition home or self-care (01) ==
LOC: JD.ED 09:34
DX: K52.9 Noninfective gastroenteritis and colitis, unspecified (principal); K57.32 Diverticulitis of large intestine without perforation or abscess without bleeding; I48.91 Unspecified atrial fibrillation; F17.210 Nicotine dependence, cigarettes, uncomplicated; Z79.01 Long term (current) use of anticoagulants; Z88.8 Allergy status to other drugs, medicaments and biological substances
CPT/HCPCS: 36415; 74177; 80053; 81003; 83690; 85025; 86140; 87493; 96360; 96361; 99284; A9270; J7030; Q9967

== ENCOUNTER 2024-11-01 13:35 | Emergency (ER) | payer MEDICARE, OTHER ==
[2024-11-01] MEDS: Sodium Chloride 0.9% 10 ML Syringe FLUSH PRN (14:41)
[2024-11-01 14:48] LABS: BASOPHILS PERCENT AUTO 0.1 % (0.0-1.0); EOSINOPHILS ABSOLUTE AUTO 0.4 K/mm3 (0.0-0.4); EOSINOPHILS PERCENT AUTO 2.5 % (0.0-6.0); HEMATOCRIT 40.2 % (37.0-47.0); HEMOGLOBIN 13.5 gm/dl (12.0-16.0); IMMATURE GRAN ABSOLUTE AUTO 0.07 K/mm3 (0.00-0.05); IMMATURE GRAN PERCENT AUTO 0.5 % (0.0-0.4); LYMPHOCYTES ABSOLUTE AUTO 2.1 K/mm3 (1.0-4.8); LYMPHOCYTES PERCENT AUTO 14.9 % (24.0-44.0); MEAN CORPUSCULAR HEMOGLOBIN 30.8 pg (28.0-32.0); MEAN CORPUSCULAR HGB CONC 33.6 g/dl (32.0-36.0); MEAN CORPUSCULAR VOLUME 91.8 fl (83.0-99.0); MEAN PLATELET VOLUME 9.2 fl (9.4-12.3); MONOCYTES ABSOLUTE AUTO 0.8 K/mm3 (0.0-0.8); MONOCYTES PERCENT AUTO 5.8 % (0.0-8.0); NEUTROPHILS ABSOLUTE AUTO 10.7 K/mm3 (1.8-7.7); NEUTROPHILS PERCENT AUTO 76.2 % (41.0-71.0); PLATELET COUNT,PLT 291 K/mm3 (150-400); RED BLOOD CELL COUNT 4.38 M/mm3 (4.10-5.30); WHITE BLOOD CELL COUNT,WBC 14.09 K/mm3 (3.9-11.3)
[2024-11-01] MEDS: Ondansetron 4 MG/2 ML SDV IVPUSH ONE (14:50)
[2024-11-01] MEDS: Sodium Chloride 0.9% 1,000 ML IV STA (14:52)
[2024-11-01 15:28] LABS: ALBUMIN 3.2 g/dl (3.4-5.0); ANION GAP 11.6 (5-15); BILIRUBIN TOTAL 0.4 mg/dL (0.2-1.0); BUN/CREATININE RATIO 11.3 (14-18); C-REACTIVE PROTEIN 0.41 mg/dL (<0.30); CALCIUM 8.6 mg/dL (8.5-10.1); CREATININE 0.8 mg/dL (0.55-1.02); EST CRCL DRUG DOSING (CG) 46.33 mL/min; POTASSIUM,K 3.6 mEq/L (3.5-5.1); PROTEIN TOTAL,TP 6.3 g/dl (6.4-8.2)
[2024-11-01 15:29] LABS: APPEARANCE,URINE CLEAR (Clear); BILIRUBIN,URINE NEGATIVE (Negative); COLOR,URINE YELLOW (Yellow); GLUCOSE,URINE NEGATIVE (Negative); KETONES,URINE NEGATIVE (Negative); LEUKOCYTE ESTERASE,URINE NEGATIVE (Negative); NITRITE,URINE NEGATIVE (Negative); OCCULT BLOOD,URINE NEGATIVE (Negative); PH,URINE 6.5 (5.0-8.0); PROTEIN,URINE NEGATIVE (Negative); UROBILINOGEN,URINE 0.2 (0.2-1.0)
[2024-11-01] MEDS: Sodium Chloride 0.9% 10 ML Syringe FLUSH ONE (15:42)
[2024-11-01] MEDS: Iopamidol 612 MG/ML 100 ML Bottle IVPUSH ONE (15:42)
[2024-11-01 18:40] VITALS: BP 155/79; PULSE 73
== END 2024-11-01 17:20 | disposition home or self-care (01) ==
LOC: JD.ED 13:35
DX: K52.9 Noninfective gastroenteritis and colitis, unspecified (principal); I48.91 Unspecified atrial fibrillation; F17.210 Nicotine dependence, cigarettes, uncomplicated; Z79.01 Long term (current) use of anticoagulants; Z79.899 Other long term (current) drug therapy
CPT/HCPCS: 36415; 74177; 80053; 81003; 83690; 85025; 86140; 96374; 99284; J2405; J7030; Q9967

== ENCOUNTER 2024-12-18 23:20 | Emergency (ER) | payer MEDICARE, OTHER ==
[2024-12-19 00:44] VITALS: BP 129/80; PULSE 75
== END 2024-12-19 00:44 | disposition home or self-care (01) ==
LOC: JD.ED 23:20
DX: K62.3 Rectal prolapse (principal); I48.91 Unspecified atrial fibrillation; F17.210 Nicotine dependence, cigarettes, uncomplicated; Z79.899 Other long term (current) drug therapy; Z79.01 Long term (current) use of anticoagulants
CPT/HCPCS: 99283

== ENCOUNTER 2025-06-14 11:17 | Emergency (ER) | payer MEDICARE, OTHER ==
[2025-06-14 13:00] LABS: BASOPHILS ABSOLUTE AUTO 0.0 K/mm3 (0.0-0.2); BASOPHILS PERCENT AUTO 0.4 % (0.0-1.0); EOSINOPHILS ABSOLUTE AUTO 0.1 K/mm3 (0.0-0.4); EOSINOPHILS PERCENT AUTO 1.6 % (0.0-6.0); IMMATURE GRAN ABSOLUTE AUTO 0.03 K/mm3 (0.00-0.05); IMMATURE GRAN PERCENT AUTO 0.4 % (0.0-0.4); LYMPHOCYTES ABSOLUTE AUTO 2.2 K/mm3 (1.0-4.8); LYMPHOCYTES PERCENT AUTO 32.6 % (24.0-44.0); MEAN PLATELET VOLUME 9.6 fl (9.4-12.3); MONOCYTES ABSOLUTE AUTO 0.8 K/mm3 (0.0-0.8); MONOCYTES PERCENT AUTO 11.7 % (0.0-8.0); NEUTROPHILS ABSOLUTE AUTO 3.6 K/mm3 (1.8-7.7); NEUTROPHILS PERCENT AUTO 53.3 % (41.0-71.0); NRBC ABSOLUTE 0.00 (0.00-0.02); NRBC PERCENT 0.0 % (0.0-0.2); PLATELET COUNT,PLT 309 K/mm3 (150-400); RED BLOOD CELL COUNT 4.69 M/mm3 (4.10-5.30); WHITE BLOOD CELL COUNT,WBC 6.68 K/mm3 (3.9-11.3)
[2025-06-14 13:24] LABS: A/G RATIO 1.0 (1-2); ALANINE AMINOTRANSFERASE,ALT 28.0 U/L (14-59); ASPARTATE AMNIOTRANSFERASE,AST 19.0 U/L (15-37); BILIRUBIN TOTAL 0.3 mg/dL (0.2-1.0); BLOOD UREA NITROGEN,BUN 10.0 mg/dL (7-18); CARBON DIOXIDE,CO2 32.0 mEq/L (21-32); CHLORIDE,CL 90.0 mEq/L (98-107); CREATININE 1.1 mg/dL (0.55-1.02); EST CRCL DRUG DOSING (CG) 33.69 mL/min; ESTIMATED GFR 54.0 mL/min (>60); GLUCOSE RANDOM 121.0 mg/dL (70-99); POTASSIUM,K 2.8 mEq/L (3.5-5.1); PROTEIN TOTAL,TP 7.3 g/dl (6.4-8.2); SODIUM,NA 131.0 mEq/L (136-145); TROPONIN I HIGH SENSITIVITY 6.0 pg/mL (<=51)
[2025-06-14] MEDS: Potassium Chloride 20 MEQ Tab.ER PO ONE (14:12)
[2025-06-14 17:05] VITALS: BP 137/81; PULSE 51
== END 2025-06-14 14:51 | disposition home or self-care (01) ==
LOC: JD.ED 11:17
DX: N17.9 Acute kidney failure, unspecified (principal); E87.6 Hypokalemia; I11.9 Hypertensive heart disease without heart failure; F17.200 Nicotine dependence, unspecified, uncomplicated; Z79.899 Other long term (current) drug therapy
CPT/HCPCS: 36415; 70450; 80053; 83735; 84484; 85025; 93005; 96360; 99284; A9270; J7030